=== PATIENT | male | born 1995 | race Caucasian/White ===

== ENCOUNTER 2021-12-08 15:09 | Emergency (ER) | payer OTHER, SELFPAY ==
[2021-12-08 15:11] VITALS: BP 125/87; PULSE 85; RESP 15; TEMP 37; O2SAT 99; BMI 23.8
--- NOTE | 2021-12-08 15:31 | EDS_ITS ---
HPI History of Present Illness Chief Complaint: Back Narrative Narrative: 26-year-old male with no significant past medical history presenting with right lower back pain. He said its been here for about a month. Initially it was mild but has been progressive. 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 He states that he is generally not physically active and does not exercise. He does not warm up before lifting any of these items. He states he is not stretching regularly. He does note that he picked up a generator about 2 weeks ago which weighed 100 pounds and this is when he noticed the back pain worsening. Has been doing Tylenol and ibuprofen which does help some. He states that he saw a chiropractor last week for an adjustment but states that the chiropractor did not crack his back or do anything traumatic. He states he used a tool to kind of hammer line back. No loss of bladder or bowel control. No saddle anesthesia or paresthesia. No direct trauma. PFSH PFS Medical History no medical history Home Medications naproxen 500 mg tablet (Naprosyn) 500 mg PO BID PRN pain #20 tabs 12/08/21 [Rx Last Taken Unknown] prednisone 10 mg tablet 50 mg PO DAILY 3 days #15 tabs 12/08/21 [Rx Last Taken Unknown] tizanidine 4 mg capsule (Zanaflex) 4 mg PO Q8H PRN muscle spasticity #20 caps 12/08/21 [Rx Last Taken Unknown] Allergy/AdvReac Type Severity Reaction Status Date / Time No Known Allergies Allergy Verified 12/08/21 15:13 Family History no significant family his Surgical History no surgical history Social History Smoking Status: Never smoker ROS ROS ED Constitutional Constitutional ED: Denies chills or fever(s) Eyes Eyes: Denies change in vision or diplopia ENT ENT ED: Denies rhinorrhea or sore throat Cardiovascular Cardiovascular: Denies chest pain or palpitations Respiratory/Chest Respiratory/Chest: Denies dyspnea or dyspnea on exertion Gastrointestinal Gastrointestinal: Denies abdominal pain, constipation, nausea or vomiting Genitourinary Genitourinary ED: Denies dysuria or hematuria Musculoskeletal Musculoskeletal: Reports back pain Integumentary Denies abscess or Abrasions Neurologic Neurologic: Denies headache(s) or paresthesias Psychiatric Psychiatric: Denies anxiety or depression EXAM Physical Exam Const Vital Signs: 12/08/21 15:11 Temperature 98.6 F Temperature Source Temporal Pulse Rate 85 Respiratory Rate 15 Blood Pressure 125/87 H Blood Pressure Mean 99 Pulse Ox 99 Oxygen Delivery Method Room Air Positive well nourished General Appearance ED: NAD; Negative for pallor HEENT Reports moist mucous membranes Negative for trauma Eyes PERRL and EOMs intact bilaterally Resp normal respiratory effort and clear to auscultation bilaterally Cardio regular rate and regular rhythm GI normal to inspection, nondistended, normoactive bowel sounds Narrative: No midline lumbar spinal tenderness, deformity, step-off Back/Spine no CVA tenderness Lumbar Spine / Lower Back: paraspinal muscle tenderness right L4 and L5 Pelvis: buttocks abnormal Extremity normal to inspection and no clubbing, cyanosis or edema Neuro oriented x3 and no sensory deficits noted Sensorium / Orientation: alert Motor Exam: strength 5/5 throughout Skin no rashes or lesions noted General Skin Exam: Negative for jaundice or pallor MDM MDM MDM Narrative Medical decision making narrative: Patient given Norflex and Toradol IM. Also given dose of prednisone 60 mg p.o. Patient counseled at length on proper lifting techniques, stretching exercises, warming up for lifting heavy objects throughout the day. X-ray of the lumbar spine shows no acute abnormalities on my interpretation. The radiologist interprets this is agrees. Patient prednisone for home as well as Zanaflex, and Naprosyn. Return precautions discussed. Impression: 1. lumbar strain Lab Data Attestation: I reviewed the patient's lab results. Radiography Diagnostic Testing: Clinical Impression(s) from Imaging Studies Lumbar Spine X-Ray 12/08/21 16:00 IMPRESSION: Normal x-ray examination of the lumbar spine. Electronically Signed: Steven Quiroz MD at 16:25 EDT , Discharge Plan Triage Chief Complaint: Back ED Provider: Nba Navarro Dx/Rx/DC Orders Instructions: ED Back Sprain/Strain Prescriptions: New prednisone 10 mg tablet 50 mg PO DAILY 3 Days Qty: 15 0RF tizanidine [Zanaflex] 4 mg capsule 4 mg PO Q8H PRN (Reason: muscle spasticity) Qty: 20 0RF naproxen [Naprosyn] 500 mg tablet 500 mg PO BID PRN (Reason: pain) Qty: 20 0RF Primary Care Provider: Susi Garsia NP Referrals: Susi Garsia NP, [employer] [Primary Care Provider] - Activity Restrictions/Additional Instructions: Take the prednisone daily for 3 days. When this is gone start Naprosyn twice a day. You can use Zanaflex as needed every 8 hours. As we discussed you need to utilize hot baths and stretching exercises. Also we discussed using proper lifting techniques as well as warming up before lifting heavy objects and stretching maneuver what is done because of all the heavy lifting. We will need to follow-up with her primary care to ensure resolution and possibly physical therapy.. Disposition Disposition: Home, Self Care
[2021-12-08] MEDS: Ketorolac 15 MG/ML Vial IM (15:48)
[2021-12-08] MEDS: Orphenadrine 60 MG/2 ML Ampul IM (15:48)
[2021-12-08] MEDS: Lidocaine 5% Patch 1 PATCH TOPICAL (15:48)
--- NOTE | 2021-12-08 16:00 | RAD_ITS ---
STUDY: X-RAY - LUMBAR SPINE REASON FOR EXAM: Male, 26 years old. back pain TECHNIQUE: 3 view(s) of the lumbar spine were obtained. COMPARISON: None FINDINGS: Normal lumbar lordosis. There is no substantial scoliosis. There is a normal alignment of the vertebrae. Normal vertebral bodies and endplates. Normal disc space heights. The soft tissue structures are unremarkable. RAD/Lumbar Spine 2 or 3 Views IMPRESSION: Normal x-ray examination of the lumbar spine. Electronically Signed: Steven Quiroz MD at 16:25 EDT ,
[2021-12-08 17:06] VITALS: RESP 18
[2021-12-08] MEDS: predniSONE 20 MG Tablet 60 MG PO (17:24)
== END 2021-12-08 17:27 | disposition home or self-care (01) ==
PROVIDERS: Emergency Provider Student in an Organized Health Care Education/Training Program; PCP Nurse Practitioner Family; Visit Provider Student in an Organized Health Care Education/Training Program
DX: S39.012A Strain of muscle, fascia and tendon of lower back, initial encounter (principal); X58.XXXA Exposure to other specified factors, initial encounter
CPT/HCPCS: 72100; 96372; 99284